=== PATIENT | female | born 1950 | race Caucasian/White ===

== ENCOUNTER 2017-07-21 10:13 | Emergency (ER) | payer MEDICARE, OTHER ==
[~2017-07-21] VITALS: Ht 157.5 cm; Wt 59.0 kg
[~2017-07-21 10:13] MED LIST: AEROBID INH; ALBU.083IS; ALBU90I INH; ALBU90OI INH; ALBUIS; ALBUTEROL INH; ASPI81CH PO; ATOR20 PO; AZIT250 PO; CELE100 PO; CODEINE-GUAIFE120 ML PO; FLUNOI; FORADIL; FORM12IH; FORMOTEROL FUMAR MC; FURO40 PO; HYDMOR2 PO; IBUP600 PO; LEVFLO500 PO; LOSA25 PO; MISO100 PO; POTCHL10ER PO; PRED10 PO; PRED20 PO; PROVENTIL INH; RABE20 PO; RXTRAM50 PO; SUCR1 PO; TRAM50 PO
[2017-07-21 10:45] LABS: Calcium, Ionized (POC) 1.15 mmol/L (1.10-1.46); Chloride (POC) 107 mmol/L (98-108); Creatinine (POC) 0.5 mg/dL (0.6-1.0); Glucose (ISTAT POC) 109 mg/dL (70-99); Hemoglobin (POC) 13.6 g/dL (12.0-16.0); Potassium (POC) 3.9 mmol/L (3.5-5.5); Sodium (POC) 142 mmol/L (135-148); Total CO2 (POC) 27 mmol/L (21-32)
[2017-07-21] MEDS ORDERED: MOTION RELIEF25 MG PO (11:33)
[2017-12-16] MEDS ORDERED: ALBU90OI6 INH (14:35)
[2017-12-16] MEDS ORDERED: ALBU2.5V5 NEB (14:35)
[2017-12-16] MEDS ORDERED: ANORO ELLIPTA1 EACH INH (14:37)
== END 2017-07-21 12:26 | disposition home or self-care (01) ==
LOC: ER 10:13
PROVIDERS: Emergency Medicine
DX: H81.399 Other peripheral vertigo, unspecified ear (principal); Z88.8 Allergy status to other drugs, medicaments and biological substances; Z91.018 Allergy to other foods; Z79.899 Other long term (current) drug therapy; Z79.82 Long term (current) use of aspirin; Z79.52 Long term (current) use of systemic steroids; Z87.891 Personal history of nicotine dependence
CPT/HCPCS: 80047; 85014; 96360; 99283; J7030

== ENCOUNTER 2023-05-13 16:40 | Inpatient (IN) | payer MEDICARE, OTHER ==
[~2023-05-13] VITALS: Ht 154.9 cm; Wt 52.1 kg
[~2023-05-13 16:40] MED LIST changes: +ALBU2.5V5 NEB; +ALBU90OI6 INH; +ANORO ELLIPTA1 EACH INH; +MOTION RELIEF25 MG PO
[2023-05-13 21:42] VITALS: BP 144/84
[2023-05-14 03:34] VITALS: BP 143/89
--- NOTE | 2023-05-14 06:48 | NUR ---
SHIFT SUMMARY PT IS HERE FOR A LEFT HIP FX RESULTING FROM A GLF. PT IS ON 2L NC FOR HX OF SEVERE COPD. PT STATED UPON ADMIT THAT SHE WANTED TO BE DNR STATUS. SHE HAS ALSO BEEN NPO SINCE MIDNIGHT EXCEPT FOR SOME SIPS OF WATER WITH MEDS FOR POSSIBLE PROCEDURE TODAY. VITAL SIGNS HAVE BEEN STABLE. BED IS IN LOWEST POSITION, CALL LIGHT IS WITHIN REACH.
[2023-05-14 07:11] VITALS: BP 135/73
[2023-05-14 08:17] LABS: BASOPHILS ABSOLUTE AUTO 0.03 K/mm3 (0.00-0.23); BASOPHILS PERCENT AUTO 0 % (0-2); EOSINOPHILS ABSOLUTE AUTO 0.17 K/mm3 (0.00-0.68); EOSINOPHILS PERCENT AUTO 2 % (0-6); Hematocrit 36.8 % (33.0-51.0); Hemoglobin 12.3 g/dL (11.5-16.0); IMMATURE GRAN ABSOLUTE AUTO 0.02 K/mm3 (0.00-0.10); IMMATURE GRAN PERCENT AUTO 0 % (0-1); LYMPHOCYTES ABSOLUTE AUTO 0.71 K/mm3 (0.84-5.20); LYMPHOCYTES PERCENT AUTO 10 % (21-46); MONOCYTES ABSOLUTE AUTO 0.65 K/mm3 (0.16-1.47); MONOCYTES PERCENT AUTO 9 % (4-13); Mean Corpuscular HGB Conc 33.4 g/dL (31.5-36.5); Mean Corpuscular Volume 90 fL (80-100); Mean Platelet Volume 10.7 fL (9.1-12.4); NEUTROPHILS ABSOLUTE AUTO 5.93 K/mm3 (1.96-9.15); NEUTROPHILS PERCENT AUTO 79 % (41-73); Platelet Count 190 K/mm3 (150-400); RDW Coefficient Variation 12.9 % (11.7-14.2); RDW Standard Deviation 42.4 fL (35.1-46.3); White Blood Cell Count 7.51 K/mm3 (4.00-11.30)
[2023-05-14 08:37] LABS: Bun/Creatinine Ratio 30.7 (12.0-20.0); Calcium, Blood 8.4 mg/dL (8.5-10.1); Creatinine, Blood 0.55 mg/dL (0.40-1.00); Potassium, Blood 3.7 mmol/L (3.5-5.5)
[2023-05-14 15:40] VITALS: BP 165/94
--- NOTE | 2023-05-14 16:42 | NUR ---
SHIFT SUMMARY PATIENT IS AOX4, ADMIT FOR LEFT HIP FX. PLAN FOR SURGERY TOMORROW. TOLERATING PO INTAKE TODAY AND TYLENOL FOR PAIN. PUREWICK IN PLACE FOR INCONT. CLEAN ATTENDS. IV ACCESS TO LEFT AC, AND RIGHT FOREARM. PATIENT IS ON 2L NC BASELINE AT HOME. HAS ALBUTEROL INHALER AT BEDSIDE. REPORTS SOB WHEN EXCERTED. SPO2 ABOVE 93%. ALL OTHER VITALS STABLE. [facility] CALL WAS MADE TO PATIENT'S SON TO UPDATE ON PLAN OF SURGERY.
[2023-05-14 17:46] VITALS: BP 175/93
[2023-05-15] VITALS (22 sets, daily range): BP systolic 115–154; BP diastolic 68–96
--- NOTE | 2023-05-15 04:15 | NUR ---
SUMMARY PT HAS BEEN SLEEPING FOR MOST OF SHIFT. PT DISCOMFORT TX PER MAR WITH RELIEF. QUETA WORKING WELL. PT HAS BEEN NPO SINCE 0000 HRS. CALL LIGHT IN REACH.
[2023-05-15 04:38] LABS: BASOPHILS ABSOLUTE AUTO 0.04 K/mm3 (0.00-0.23); BASOPHILS PERCENT AUTO 1 % (0-2); EOSINOPHILS ABSOLUTE AUTO 0.29 K/mm3 (0.00-0.68); EOSINOPHILS PERCENT AUTO 5 % (0-6); Hematocrit 35.6 % (33.0-51.0); Hemoglobin 11.8 g/dL (11.5-16.0); IMMATURE GRAN ABSOLUTE AUTO 0.02 K/mm3 (0.00-0.10); IMMATURE GRAN PERCENT AUTO 0 % (0-1); LYMPHOCYTES ABSOLUTE AUTO 0.75 K/mm3 (0.84-5.20); LYMPHOCYTES PERCENT AUTO 12 % (21-46); MONOCYTES ABSOLUTE AUTO 0.57 K/mm3 (0.16-1.47); MONOCYTES PERCENT AUTO 9 % (4-13); Mean Corpuscular HGB Conc 33.1 g/dL (31.5-36.5); Mean Corpuscular Volume 91 fL (80-100); Mean Platelet Volume 11.1 fL (9.1-12.4); NEUTROPHILS ABSOLUTE AUTO 4.58 K/mm3 (1.96-9.15); NEUTROPHILS PERCENT AUTO 73 % (41-73); Platelet Count 155 K/mm3 (150-400); RDW Coefficient Variation 12.9 % (11.7-14.2); RDW Standard Deviation 42.9 fL (35.1-46.3); Red Blood Cell Count 3.93 M/mm3 (3.80-5.20); White Blood Cell Count 6.25 K/mm3 (4.00-11.30)
[2023-05-15 04:45] LABS: Bun/Creatinine Ratio 23.4 (12.0-20.0); Calcium, Blood 8.5 mg/dL (8.5-10.1); Creatinine, Blood 0.56 mg/dL (0.40-1.00); Potassium, Blood 4.3 mmol/L (3.5-5.5)
--- NOTE | 2023-05-15 10:54 | NUR ---
"Spiritual Care | Pt. request Pt. is resting in bed but responds when I walk into the room. A friend is at bedisde. Pt. is pleasant and welcomed my visit. Facilitate a life review and estbalish some level of rapport. Pt. displays evidence of pre-surgery anxiety. Listen with empathy and a calming presence. Prayed with Pt. After prayer, Pt. displayed evidence of a lightened mood. Pt. 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
--- NOTE | 2023-05-15 19:39 | NUR ---
SHIFT SUMMARY S/P L HIP PERC PIN, AQUACEL CDI, A&OX4, VSS/2LNC, VOIDING/BEDPAN, PAIN MANAGED, AFSANEH PO, REPOSITIONS SELF IN BED. REPORT TO AYANA TORRES.
[2023-05-16 04:32] VITALS: BP 135/76
[2023-05-16 05:03] LABS: BASOPHILS ABSOLUTE AUTO 0.01 K/mm3 (0.00-0.23); BASOPHILS PERCENT AUTO 0 % (0-2); EOSINOPHILS ABSOLUTE AUTO 0.01 K/mm3 (0.00-0.68); EOSINOPHILS PERCENT AUTO 0 % (0-6); Hematocrit 34.4 % (33.0-51.0); Hemoglobin 11.4 g/dL (11.5-16.0); IMMATURE GRAN ABSOLUTE AUTO 0.03 K/mm3 (0.00-0.10); IMMATURE GRAN PERCENT AUTO 1 % (0-1); LYMPHOCYTES ABSOLUTE AUTO 0.37 K/mm3 (0.84-5.20); LYMPHOCYTES PERCENT AUTO 7 % (21-46); MONOCYTES ABSOLUTE AUTO 0.46 K/mm3 (0.16-1.47); MONOCYTES PERCENT AUTO 8 % (4-13); Mean Corpuscular HGB 29.8 pg (26.0-34.0); Mean Corpuscular HGB Conc 33.1 g/dL (31.5-36.5); Mean Corpuscular Volume 90 fL (80-100); Mean Platelet Volume 11.3 fL (9.1-12.4); NEUTROPHILS ABSOLUTE AUTO 4.82 K/mm3 (1.96-9.15); NEUTROPHILS PERCENT AUTO 85 % (41-73); Platelet Count 148 K/mm3 (150-400); RDW Coefficient Variation 12.8 % (11.7-14.2); Red Blood Cell Count 3.83 M/mm3 (3.80-5.20)
--- NOTE | 2023-05-16 05:08 | NUR ---
SHIFT SUMMARY POD1 L HIP PINNING. SENSATION AND CIRCULATION REMAINS INTACT IN LLE. AQUACEL IS C/D/I. VSS. PT SLEPT WELL T/O THE NIGHT. TOLLERATED PO INTAKE W/O N/V. USED BEDPAN AT THE BEGINNING OF SHIFT W/O DIFFICULTY, PT REFUSED BEDPAN WITH AM VITALS BUT REPORTS SHE WILL VOID THIS AM "WHEN SHE IS READY". MEDICATED FOR PAIN WITH PRN'S WITH GOOD RESULTS. PLAN TO BLADDER SCAN. PT DID NTO GET OOB THIS SHIFT, PLAN TO WITH PT/OT TODAY. NO ACUTE EVENTS NOTED T/O THE NIGHT. PLAN FOR PT TO WORK WITH PT/OT AND BEGIN TO AMBUALTE TODAY.
[2023-05-16 05:29] LABS: Bun/Creatinine Ratio 34.5 (12.0-20.0); Calcium, Blood 8.6 mg/dL (8.5-10.1); Creatinine, Blood 0.49 mg/dL (0.40-1.00); Potassium, Blood 4.5 mmol/L (3.5-5.5)
[2023-05-16 07:45] VITALS: BP 138/77
[2023-05-16] MEDS ORDERED: TRAM50 PO (11:01)
[2023-05-16] MEDS ORDERED: ELIQUIS2.5 MG PO (11:02)
--- NOTE | 2023-05-16 12:57 | NUR ---
DISCHARGE SUMMARY PT A&OX4, VSS/RA, AFSANEH PO, VOIDING, AMB SBA 50% WB FWW/UP TO CHAIR, PAIN MANAGED, IV DC'D. POD1 LHPINNING, AQUACEL CDI, ELEVATED AND ICED AT REST. DC INS PROVIDED. PT REP UNDERSTANDING THOSE INSTRUCTIONS INCLUDING FU WITH SURGEON, DRESSING CHANGES, PAIN MANAGED, ELIQUIS BID/READY AT [facility], HOME HEALTH/PT- ALREADY CALLED PT AND SCHEDULED VISIT. LEFT FLOOR VIA WC WITH DAIRY CHEMIST TO GO HOME WITH SISTER WITH ALL PERSONAL POSSESSIONS INCLUDING DC PACKET, AQUACEL DRESSINGS, PAIN SCRIPT, ELIQUIS/COUPON ON LINE.
== END 2023-05-16 13:33 | disposition home health service (06) | DRG 481 ==
LOC: ER 16:40 → SURS 19:09
PROVIDERS: Family Medicine; Orthopaedic Surgery Sports Medicine; Student in an Organized Health Care Education/Training Program; ADMIT Internal Medicine
PROC: 0QH734Z Insertion of Internal Fixation Device into Left Upper Femur, Percutaneous Approach (ICD-10-PCS; principal; 2023-05-15 12:30)
DX: S72.002A Fracture of unspecified part of neck of left femur, initial encounter for closed fracture (principal); J96.11 Chronic respiratory failure with hypoxia; J44.9 Chronic obstructive pulmonary disease, unspecified; K90.0 Celiac disease; W01.0XXA Fall on same level from slipping, tripping and stumbling without subsequent striking against object, initial encounter; E78.5 Hyperlipidemia, unspecified; K21.9 Gastro-esophageal reflux disease without esophagitis; Z87.11 Personal history of peptic ulcer disease; Z90.710 Acquired absence of both cervix and uterus; Z88.8 Allergy status to other drugs, medicaments and biological substances; Z79.82 Long term (current) use of aspirin; Z79.899 Other long term (current) drug therapy; Z99.81 Dependence on supplemental oxygen; Z86.73 Personal history of transient ischemic attack (TIA), and cerebral infarction without residual deficits; Z91.018 Allergy to other foods; Z90.89 Acquired absence of other organs; Z87.891 Personal history of nicotine dependence; Z98.890 Other specified postprocedural states
CPT/HCPCS: 36415; 72170; 73502; 73552; 80048; 85025; 94640; 94664; 94760; 96374; 96375; 97116; 97161; 97165; 97530; 97535; 99284-25; A9270; J0690; J1100; J1885; J2060; J2270; J2371; J2405; J2704; J2710; J3010; J7030; J7120

== ENCOUNTER 2024-07-24 16:09 | Observation (INO) | payer MEDICARE, OTHER ==
[~2024-07-24 16:09] MED LIST changes: -VITAMIN D5000 UNIT PO
[2024-07-24] MEDS ORDERED: ALBU90OI INH (16:39)
[2024-07-24] MEDS ORDERED: VITAMIN D5000 UNIT PO (16:40)
[2024-07-24] MEDS ORDERED: AZIT250 PO (16:40)
[2024-07-24 16:51] LABS: BASOPHILS ABSOLUTE AUTO 0.04 K/mm3 (0.00-0.23); BASOPHILS PERCENT AUTO 1 % (0-2); EOSINOPHILS ABSOLUTE AUTO 0.17 K/mm3 (0.00-0.68); EOSINOPHILS PERCENT AUTO 4 % (0-6); Hematocrit 41.8 % (33.0-51.0); IMMATURE GRAN ABSOLUTE AUTO 0.01 K/mm3 (0.00-0.10); IMMATURE GRAN PERCENT AUTO 0 % (0-1); LYMPHOCYTES ABSOLUTE AUTO 1.25 K/mm3 (0.84-5.20); LYMPHOCYTES PERCENT AUTO 27 % (21-46); MONOCYTES ABSOLUTE AUTO 0.49 K/mm3 (0.16-1.47); MONOCYTES PERCENT AUTO 11 % (4-13); Mean Corpuscular HGB Conc 33.5 g/dL (31.5-36.5); Mean Corpuscular Volume 90 fL (80-100); Mean Platelet Volume 10.1 fL (9.1-12.4); NEUTROPHILS ABSOLUTE AUTO 2.62 K/mm3 (1.96-9.15); NEUTROPHILS PERCENT AUTO 57 % (41-73); Platelet Count 219 K/mm3 (150-400); RDW Coefficient Variation 12.6 % (11.7-14.2); RDW Standard Deviation 41.1 fL (35.1-46.3); Red Blood Cell Count 4.66 M/mm3 (3.80-5.20); White Blood Cell Count 4.58 K/mm3 (4.00-11.30)
[2024-07-24 17:16] LABS: Albumin, Blood 3.7 g/dL (3.4-5.0); Albumin/Globulin Ratio 1.2 (0.8-1.8); Bilirubin, Total 0.7 mg/dL (0.1-1.0); Bun/Creatinine Ratio 18.4 (12.0-20.0); Calcium, Blood 9.3 mg/dL (8.5-10.1); Creatinine, Blood 0.76 mg/dL (0.40-1.00); Globulin, Blood 3.1 g/dL (2.2-4.0); Potassium, Blood 4.6 mmol/L (3.5-5.5); Total Protein, Blood 6.8 g/dL (6.4-8.2)
[2024-07-24] MEDS ORDERED: FLU VACC TS2024-25(6MOS UP)/PF 45 MCG/0.5 ML SYRINGE IM ONE (19:05)
[2024-07-24] MEDS ORDERED: Ipratropium/Albuterol SulF 2.5-0.5MG/3 ML Amp INH SCH ×2 (20:00→21:51)
[2024-07-24] MEDS ORDERED: Albuterol HFA200 ACT/6.7 GM INH INH PRN (20:00)
[2024-07-24 21:44] VITALS: BP 152/82
[2024-07-25 03:17] VITALS: BP 130/64
[2024-07-25] MEDS ORDERED: Pantoprazole Sodium 40 MG Tab PO SCH (07:30)
[2024-07-25 07:40] VITALS: BP 122/81
[2024-07-25] MEDS ORDERED: Acetaminophen 325 MG TABLET PO PRN (08:25)
[2024-07-25] MEDS ORDERED: Cholecalciferol 1000 Unit Tablet (=25MCG) PO SCH (09:00)
[2024-07-25 12:01] VITALS: BP 145/82
[2024-07-25] MEDS ORDERED: Regadenoson 0.4 MG/5 ML SYRINGE ONE (13:26)
[2024-07-25] MEDS ORDERED: Caffeine Citrated 60 MG/3 ML Vial ONE (13:27)
[2024-07-25] MEDS ORDERED: Aminophylline 250MG / 10ML 10 ML Vial ONE (13:27)
--- NOTE | 2024-07-25 15:35 | NUR ---
Julia (pt) is awake and alert at bedside with a friend. Pt has recently had a lengthy visit with pharmacy salesperson and feels assured by the exprience. Prayed with pt and she verbally expressed gratitude.
[2024-07-25 16:02] VITALS: BP 145/70
--- NOTE | 2024-07-25 16:38 | NUR ---
PT PLEASANT COOP TODAY. NO CHEST PAIN/PRESSURE THIS SHIFT. DID BOTH PARTS STRESS TEST TODAY. FRIEND IN TO VISIT TODAY. PT INDICATES TO ME WANTS TO GO HOME. PENDING RESULTS STRESS TEST. NO OTHER CONCERNS NOTED. BED IN LOW POSITION, [place]LLITE IN REACH, CALLS APPROP
--- NOTE | 2024-07-25 17:56 | NUR ---
1730 DR DASH STATES CAN DISCHARGE PT. STRESS TEST NEGATIVE. DISCHARGE REVIEWED WITH PT. SHE VERBALIZED UNDERSTANDING MEDS AND INST. GRADES 1 6 TUTOR PULLED IV X2, TELE REMOVED. PT WHEELED TO DOOR AT 1745
== END 2024-07-25 17:52 | disposition home or self-care (01) ==
LOC: ER 16:09 → MEDS 16:10
PROVIDERS: Student in an Organized Health Care Education/Training Program; ADMIT Internal Medicine
DX: R07.89 Other chest pain (principal); K21.9 Gastro-esophageal reflux disease without esophagitis; E78.5 Hyperlipidemia, unspecified; J44.9 Chronic obstructive pulmonary disease, unspecified; Z99.81 Dependence on supplemental oxygen; Z87.891 Personal history of nicotine dependence; Z88.8 Allergy status to other drugs, medicaments and biological substances; Z86.73 Personal history of transient ischemic attack (TIA), and cerebral infarction without residual deficits; R07.9 Chest pain, unspecified
CPT/HCPCS: 71046; 78452; 80053; 84484; 85025; 85379; 93005; 93010; 93017; 94640; 94760; 96374; 96376; 99285-25; A9270; A9500; G0378; J0280; J0706; J2785

== ENCOUNTER → 2024-07-24 | Outpatient (CLI) | payer MEDICARE, OTHER ==
[~2024-07-24] MED LIST changes: +ELIQUIS2.5 MG PO; +VITAMIN D5000 UNIT PO
[2024-07-24 14:02] LABS: BASOPHILS ABSOLUTE AUTO 0.04 K/mm3 (0.00-0.23); BASOPHILS PERCENT AUTO 1 % (0-2); EOSINOPHILS ABSOLUTE AUTO 0.15 K/mm3 (0.00-0.68); EOSINOPHILS PERCENT AUTO 3 % (0-6); Hematocrit 41.8 % (33.0-51.0); IMMATURE GRAN ABSOLUTE AUTO 0.01 K/mm3 (0.00-0.10); IMMATURE GRAN PERCENT AUTO 0 % (0-1); LYMPHOCYTES ABSOLUTE AUTO 1.25 K/mm3 (0.84-5.20); LYMPHOCYTES PERCENT AUTO 29 % (21-46); MONOCYTES ABSOLUTE AUTO 0.42 K/mm3 (0.16-1.47); MONOCYTES PERCENT AUTO 10 % (4-13); Mean Corpuscular HGB 29.7 pg (26.0-34.0); Mean Corpuscular HGB Conc 33.5 g/dL (31.5-36.5); Mean Corpuscular Volume 89 fL (80-100); Mean Platelet Volume 10.4 fL (9.1-12.4); NEUTROPHILS ABSOLUTE AUTO 2.48 K/mm3 (1.96-9.15); NEUTROPHILS PERCENT AUTO 57 % (41-73); Platelet Count 219 K/mm3 (150-400); RDW Coefficient Variation 12.6 % (11.7-14.2); RDW Standard Deviation 41.1 fL (35.1-46.3); Red Blood Cell Count 4.71 M/mm3 (3.80-5.20); White Blood Cell Count 4.35 K/mm3 (4.00-11.30)
[2024-07-24 14:12] LABS: Albumin/Globulin Ratio 1.4 (0.8-1.8); Bilirubin, Total 0.5 mg/dL (0.1-1.0); Bun/Creatinine Ratio 21.1 (12.0-20.0); Calcium, Blood 9.6 mg/dL (8.5-10.1); Creatinine, Blood 0.71 mg/dL (0.40-1.00); Globulin, Blood 2.9 g/dL (2.2-4.0); Potassium, Blood 3.8 mmol/L (3.5-5.5); Total Protein, Blood 6.9 g/dL (6.4-8.2)
== END ==
LOC: LAB SHORT 13:56 → LAB 13:56
DX: R07.9 Chest pain, unspecified (principal)
CPT/HCPCS: 80053; 84484; 85025; 85379